=== PATIENT | female | born 1990 | race Caucasian/White ===

== ENCOUNTER 2016-09-15 17:36 | Emergency (ER) | payer SELFPAY ==
[~2016-09-15] VITALS: Ht 165.1 cm; Wt 46.0 kg
[~2016-09-15 17:36] MED LIST: CLIN1CAP6 PO; IBUP800T23 PO; MAGICADU2 SWISH-SPIT; PERI0.126 SWISH-SPIT; PRED-503 PO
[2016-09-15 17:38] VITALS: BP 123/62; PULSE 69; RESP 18; TEMP 98.6; O2SAT 100
--- NOTE | 2016-09-15 17:44 | PD ---
Physical Exam Time Seen by Provider: 17:41 Narrative 25yo F w/ + test 3 weeks ago and having vag bleeding and lower abd cramping x 2-3 days. +nausea w/o vomiting. Denies fever. LMP about 2 months ago. Patient seen in triage. VS reviewed. Awaiting bed placement. Data Data Last Documented VS Vital Signs Date Time Temp Pulse Resp B/P Pulse Ox O2 Delivery O2 Flow Rate FiO2 09/15/16 17:38 98.6 69 18 123/62 100 Room Air MDM Supervised Visit with JAYDEN: Carmen Nash Sep 15, 2016 17:44
--- NOTE | 2016-09-15 18:45 | PD ---
HPI Chief Complaint: Related Problem Time Seen by Provider: 18:34 Travel History International Travel<30 days: No Contact w/Intl Traveler<30days: No Traveled to known affect area: No History of Present Illness HPI 25yo F with no PMH presents to the ED with c/o vaginal spotting, lower abdominal cramping and white vaginal discharge for about 3 days. Pt had positive test at home 2 weeks ago. Does not know her LMP, could be one or 2 months ago. Had nausea but not nauseous right now. Denies any fever, vomiting, chest pain, sob, dysuria, focal weakness or numbness. PFSH Past Medical History Medical History: Denies Significant Hx Diminished Hearing: No Tetanus Vaccination: < 5 Years Influenza Vaccination: No ?: LMP: TWO MONTHS AGO : 1 Past Surgical History Surgical History: No Previous Surgery Social History Alcohol Use: No (quit 2 weeks ago) Tobacco Use: Yes (less than 1/2 ppd) Substance Use: No Allergies-Medications (Allergen,Severity, Reaction): Coded Allergies: No Known Allergies (Unverified , 09/15/16) Reported Meds & Prescriptions Reported Meds & Active Scripts Active Tylenol (Acetaminophen) 325 Mg Tab 650 Mg PO Q6H PRN Macrobid (Nitrofurantoin Monoh/Nitrofur Macro) 100 Mg Cap 100 Mg PO BID 5 Days Review of Systems Except as stated in HPI: all other systems reviewed are Neg Physical Exam Narrative GENERAL: 25yo F not in distress. SKIN: Focused skin assessment warm/dry. HEAD: Atraumatic. Normocephalic. CARDIOVASCULAR: Regular rate and rhythm. No murmur appreciated. RESPIRATORY: No accessory muscle use. Clear to auscultation. Breath sounds equal bilaterally. GASTROINTESTINAL: Abdomen soft, +Suprapubic ttp. No rebound tenderness or guarding. No RLQ ttp. PELVIC: +White vaginal discharge. No blood. Cervical os is closed. No CMT or adnexal tenderness bilaterally. MUSCULOSKELETAL: No obvious deformities. No clubbing. No cyanosis. No edema. NEUROLOGICAL: Awake and alert. No obvious cranial nerve deficits. Motor grossly within normal limits. Normal speech. PSYCHIATRIC: Appropriate mood and affect; insight and judgment normal. Data Data Last Documented VS Vital Signs Date Time Temp Pulse Resp B/P Pulse Ox O2 Delivery O2 Flow Rate FiO2 09/15/16 19:28 71 18 104/63 100 Room Air 09/15/16 17:38 98.6 Orders Complete Blood Count With Diff (09/15/16 18:40) Basic Metabolic Panel (Bmp) (09/15/16 18:40) Beta Hcg (Quant/Titer) (09/15/16 18:40) Gc And Chlamydia Pcr (09/15/16 18:40) Type And Screen (09/15/16 18:40) Wet Prep Profile (09/15/16 18:40) Urinalysis - C+S If Indicated (09/15/16 18:40) Prothrombin Time / Inr (Pt) (09/15/16 18:40) Act Partial Throm Time (Ptt) (09/15/16 18:40) Ed Poc Ultrasound (09/15/16 ) Ed Poc Ultrasound (09/15/16 ) Us Pelvis Preg W Transvaginal (09/15/16 ) Urine Culture (09/15/16 18:45) Nitrofurantoin Monohyd Macrocr (Macrobid (09/15/16 21:45) Labs Laboratory Tests Test 09/15/16 09/15/16 18:45 19:40 White Blood Count 10.2 TH/MM3 Red Blood Count 3.90 MIL/MM3 Hemoglobin 12.6 GM/DL Hematocrit 36.4 % Mean Corpuscular Volume 93.4 FL Mean Corpuscular Hemoglobin 32.3 PG Mean Corpuscular Hemoglobin 34.6 % Concent Red Cell Distribution Width 12.8 % Platelet Count 305 TH/MM3 Mean Platelet Volume 8.5 FL Neutrophils (%) (Auto) 68.7 % Lymphocytes (%) (Auto) 19.0 % Monocytes (%) (Auto) 8.7 % Eosinophils (%) (Auto) 3.3 % Basophils (%) (Auto) 0.3 % Neutrophils # (Auto) 7.0 TH/MM3 Lymphocytes # (Auto) 1.9 TH/MM3 Monocytes # (Auto) 0.9 TH/MM3 Eosinophils # (Auto) 0.3 TH/MM3 Basophils # (Auto) 0.0 TH/MM3 CBC Comment DIFF FINAL Differential Comment Prothrombin Time 10.2 SEC Prothromb Time International 0.9 RATIO Ratio Activated Partial 27.7 SEC Thromboplast Time Urine Color LIGHT-YELLOW Urine Turbidity HAZY Urine pH 6.5 Urine Specific [place] 1.010 Urine Protein NEG mg/dL Urine Glucose (UA) NEG mg/dL Urine Ketones NEG mg/dL Urine Occult Blood NEG Urine Nitrite NEG Urine Bilirubin NEG Urine Urobilinogen LESS THAN 2.0 MG/DL Urine Leukocyte Esterase TRACE Urine RBC 1 /hpf Urine WBC 1 /hpf Urine Squamous Epithelial 13 /hpf Cells Urine Bacteria MOD /hpf Urine Mucus FEW /lpf Microscopic Urinalysis Comment CULTURE INDICATED Sodium Level 136 MEQ/L Potassium Level 3.5 MEQ/L Chloride Level 102 MEQ/L Carbon Dioxide Level 25.2 MEQ/L Anion Gap 9 MEQ/L Blood Urea Nitrogen 8 MG/DL Creatinine 0.61 MG/DL Estimat Glomerular Filtration 120 ML/MIN Rate Random Glucose 79 MG/DL Calcium Level 8.5 MG/DL Human Chorionic Gonadotropin, 10708 MIU/ML Quant Blood Type A POSITIVE Antibody Screen NEGATIVE Clue Cells (Wet Prep) NONE SEEN Vaginal Trichomonas (Wet Prep) NONE SEEN Vaginal Yeast (Wet Prep) NONE SEEN Chlamydia trachomatis DNA NOT DETECTED (PCR) Neisseria gonorrhoeae DNA NOT DETECTED (PCR) MDM Medical Decision Making Medical Screen Exam Complete: Yes Emergency Medical Condition: Yes Differential Diagnosis Threatened vs. ectopic vs. bacterial vaginosis vs. cystitis Narrative Course 25yo F with lower abdominal cramping, vaginal spotting and white vaginal discharge for 3 days. Pt is but does not know LMP. I was only able to identify gestational sac in bedside ultrasound. Unsure of intrauterine . Will obtain transvaginal US. Labs reviewed, no leukocytosis. [facility] [place] [id number]. Blood type is A+. No rhogam needed. UA showed moderate bacteria and trace leukocyte. Although may be contamination, pt is and has suprapubic ttp so will treat with macrobid. Wet prep negative. Pt states she does not want anything for pain currently. US showed single, viable intrauterine at approximately 5 weeks and 5 days gestational age with small subchorionic hemorrhage. No evidence of ectopic. Return precautions given. Procedures Procedure Narrative Emergency Department Pelvic ultrasound was performed with patient consent. The curvilinear probe was used in the transverse and sagittal views within the suprapubic region revealing a gestational sac. No definite intrauterine identified. Will obtain official transvaginal US. Diagnosis Primary Impression: Vaginal bleeding in Qualified Code: O46.91 - Vaginal bleeding in , first trimester Patient Instructions: General Instructions Departure Forms: Tests/Procedures Additional Instructions: Please follow up with your OBGYN in 1-2 days. Return to the ED if symptoms worsen. Med/Other Pt SpecificInfo: Prescription(s) given Scripts Acetaminophen (Tylenol)325 Mg [id number] Mg PO Q6H PRN (PAIN SCALE 1 TO 4) #20 TAB Ref 0 Prov:Teodora Asher DO 09/15/16 Nitrofurantoin Monohydrate Macrocrystals (Macrobid)100 Mg [id number] Mg PO BID 5 Days Ref 0 Prov:Teodora Asehr DO 09/15/16 Disposition: 01 DISCHARGE HOME Condition: Stable Teodora Asher DO Sep 15, 2016 18:45
[2016-09-15 19:23] LABS: BASOPHIL % 0.3 % (0.0-2.0); EOSINOPHIL # 0.3 TH/MM3 (0-0.4); EOSINOPHIL % 3.3 % (0.0-4.0); HEMATOCRIT 36.4 % (35.0-46.0); HEMO FLAGS DIFF FINAL; LYMPHOCYTE # 1.9 TH/MM3 (1.0-4.8); MEAN CELL VOLUME 93.4 FL (80.0-100.0); MEAN CORPUSCULAR HEMOGLOBIN 32.3 PG (27.0-34.0); MEAN CORPUSCULAR HGB CONC 34.6 % (32.0-36.0); MONO % 8.7 % (0.0-8.0); NEUT % 68.7 % (16.0-70.0); PLATELET COUNT 305 TH/MM3 (150-450); RED CELL DISTRIBUTION WIDTH 12.8 % (11.6-17.2); WHITE BLOOD COUNT 10.2 TH/MM3 (4.0-11.0)
[2016-09-15 19:28] VITALS: BP 104/63; PULSE 71; RESP 18; O2SAT 100
[2016-09-15 19:30] LABS: APTT (PATIENT) 27.7 SEC (24.3-30.1); INTERNATIONAL NORMALIZED RATIO 0.9 RATIO; PROTHROMBIN TIME - PATIENT 10.2 SEC (9.8-11.6)
[2016-09-15 19:31] LABS: BACTERIA, URINE MOD /hpf; BLOOD, URINE NEG (NEG); COMMENT (UR) CULTURE INDICATED; CULTURE IF INDICATED CULTURE INDICATED; GLUCOSE,URINE NEG (NEG); KETONE, URINE NEG (NEG); MUCUS URINE FEW /lpf (OCC); NITRITE,URINE NEG (NEG); PH, URINE 6.5 (5.0-8.5); SQUAMOUS EPITHELIAL CELL URINE 13 /hpf (0-5); URINE COLOR LIGHT-YELLOW (YELLW/STRAW)
[2016-09-15 19:48] LABS: BICARBONATE 25.2 MEQ/L (21.0-32.0); POTASSIUM 3.5 MEQ/L (3.5-5.1)
--- NOTE | 2016-09-15 21:35 | RADRPT ---
EXAM DATE/TIME: 09/15/2016 20:39 [place] COMPARISON: No previous studies available for comparison. INDICATIONS : Pelvic cramping and spotting. LAB(S): Beta-hC,970 MEDICAL HISTORY : . Tobacco use. SURGICAL HISTORY : None. ENCOUNTER: Initial ACUITY: 3 days PAIN SCORE: 5/10 LOCATION: Bilateral pelvis MEASUREMENTS: UTERUS: 9.7 x 6.6 x 4.6 cm ENDOMETRIAL STRIPE: 18 mm RIGHT OVARY: 3.8 x 2.4 x 2.7 cm LEFT OVARY: 2.4 x 2.0 x 1.3 cm FREE FLUID: Yes posterior cul de sac CROWN RUMP LENGTH: 0.2 cm = 5 WKS 5 DAYS FHR: 106 BPM FINDINGS: UTERUS: Viable intrauterine at approximately 5 weeks 5 days gestational age noted. heart tone s are demonstrated. Mixed echogenicity structure seen adjacent to the gestational sac suggesting a kelsey bchorionic hemorrhage, measures 13 x 11 x 10 mm. RIGHT OVARY: Complex cyst measuring 18 x 13 x 15 mm. LEFT OVARY: Ovary contains no mass or significant cystic lesion. MISCELLANEOUS: Trace free fluid in the pelvic cul-de-sac. CONCLUSION: 1. Single, viable intrauterine at approximately 5 weeks 5 days gestational age with a small subchorionic hemorrhage. 2. Corpus luteal cyst of the right ovary. No evidence of ectopic. Calvin Meléndez MD on September 15, 2016 at 21:31 Board Certified Radiologist. This report was verified electronically.
[2016-09-15] MEDS ORDERED: TYLE325T PO (21:40)
[2016-09-15] MEDS ORDERED: MACR100C2 PO (21:40)
[2016-09-15] MEDS ORDERED: NITROFURANTOIN MONOHYD MACROCR 100 MG CAP PO ONE (21:45)
[2016-09-15 21:47] LABS: CHLAMYDIA PCR NOT DETECTED (NOT DETECT); NEISSERIA PCR NOT DETECTED (NOT DETECT)
[2016-09-15 22:02] VITALS: BP 105/74
== END 2016-09-15 22:11 | disposition home or self-care (01) ==
LOC: NEPD 17:36
DX: O46.91 Antepartum hemorrhage, unspecified, first trimester (principal); O26.891 Other specified pregnancy related conditions, first trimester; R10.30 Lower abdominal pain, unspecified; R82.99 Other abnormal findings in urine; Z72.0 Tobacco use; Z3A.01 Less than 8 weeks gestation of pregnancy
CPT/HCPCS: 76801; 76817; 80048; 81001; 84702; 85025; 85610; 85730; 86850; 86900; 86901; 87086; 87210; 87491; 87591; 99284

== ENCOUNTER 2017-02-27 15:55 | Emergency (ER) | payer OTHER, MEDICAID ==
[~2017-02-27] VITALS: Ht 152.4 cm; Wt 54.0 kg
[~2017-02-27 15:55] MED LIST changes: -CLIN1CAP6 PO; -IBUP800T23 PO; +MACR100C2 PO; -MAGICADU2 SWISH-SPIT; -PERI0.126 SWISH-SPIT; -PRED-503 PO; +TYLE325T PO
[2017-02-27 16:12] VITALS: BP 116/63; PULSE 87; RESP 16; TEMP 98.5; O2SAT 99
--- NOTE | 2017-02-27 17:08 | PD ---
HPI Chief Complaint: GI Complaint Time Seen by Provider: 17:07 Travel History International Travel<30 days: No Contact w/Intl Traveler<30days: No Traveled to known affect area: No History of Present Illness HPI 26-year-old female came to the emergency room with history of vomiting since yesterday. Patient is close to 30 weeks . However she has not had any care. And says she does not have insurance but she is trying to get somebody since her Medicare has kicked in. She says she can feel the baby moving. She also feels quite dehydrated. Patient is A0. Her vital signs were stable. She otherwise claims to be a healthy person. She says she' s been vomiting a lot throughout the . She has been taking the pills every day. Her is here with her as well. [facility] Past Medical History Narrative Medical List of her past medical, surgical, social and family history is reviewed from the nursing note. Diminished Hearing: No ?: LMP: 08/2016 : 1 Social History Alcohol Use: No (quit 2 weeks ago) Tobacco Use: Yes (less than 1/2 ppd) Substance Use: No Allergies-Medications (Allergen,Severity, Reaction): Coded Allergies: No Known Allergies (Unverified Adverse Reaction, Unknown, 02/27/17) Comments No known drug allergies. Reported Meds & Prescriptions Reported Meds & Active Scripts Active Zofran Odt (Ondansetron Odt) 4 Mg Tab 4 Mg SL Q6HR PRN Narrative Medication List of her home medications reviewed from the nursing note. Review of Systems Except as stated in HPI: all other systems reviewed are Neg Gastrointestinal: Positive: Nausea, Vomiting Physical Exam Narrative GENERAL: Awake, alert, mild distress SKIN: Focused skin assessment warm/dry. HEAD: Atraumatic. Normocephalic. EYES: Pupils equal and round. No scleral icterus. No injection or drainage. ENT: No nasal bleeding or discharge. Mucous membranes pink and moist. Poor dentition NECK: Trachea midline. No JVD. CARDIOVASCULAR: Regular rate and rhythm. No murmur appreciated. RESPIRATORY: No accessory muscle use. Clear to auscultation. Breath sounds equal bilaterally. GASTROINTESTINAL: Abdomen soft, non-tender, nondistended. Hepatic and splenic margins not palpable. Gravid uterus MUSCULOSKELETAL: No obvious deformities. No clubbing. No cyanosis. No edema. NEUROLOGICAL: Awake and alert. No obvious cranial nerve deficits. Motor grossly within normal limits. Normal speech. PSYCHIATRIC: Appropriate mood and affect; insight and judgment normal. Data Data Last Documented VS Orders Orders Complete Blood Count With Diff (02/27/17 17:37) Comprehensive Metabolic Panel (02/27/17 17:37) Urinalysis - C+S If Indicated (02/27/17 17:37) Iv Access Insert/Monitor (02/27/17 17:37) Ecg Monitoring (02/27/17 17:37) Oximetry (02/27/17 17:37) Ondansetron Inj (Zofran Inj) (02/27/17 17:45) Sodium Chlor 0.9% 1000 Ml Inj (Ns 1000 M (02/27/17 17:37) Sodium Chloride 0.9% Flush (Ns Flush) (02/27/17 17:45) Ed Discharge Order (02/27/17 18:27) Labs Laboratory Tests Test 02/27/17 17:45 02/27/17 17:50 Urine Color YELLOW Urine Turbidity CLEAR Urine pH 7.0 Urine Specific [place] 1.020 Urine Protein NEG mg/dL Urine Glucose (UA) NEG mg/dL Urine Ketones 15 mg/dL Urine Occult Blood NEG Urine Nitrite NEG Urine Bilirubin NEG Urine Leukocyte Esterase NEG Urine WBC 0-2 /hpf Urine Squamous Epithelial Cells 0-5 /hpf Urine Bacteria FEW /hpf Urine Mucus MOD /lpf Microscopic Urinalysis Comment CULT NOT INDICATED White Blood Count 14.7 TH/MM3 Red Blood Count 3.48 MIL/MM3 Hemoglobin 10.2 GM/DL Hematocrit 32.2 % Mean Corpuscular Volume 92.6 FL Mean Corpuscular Hemoglobin 29.4 PG Mean Corpuscular Hemoglobin Concent 31.7 % Red Cell Distribution Width 12.2 % Platelet Count 322 TH/MM3 Mean Platelet Volume 7.6 FL Neutrophils (%) (Auto) 89.1 % Lymphocytes (%) (Auto) 5.6 % Monocytes (%) (Auto) 3.7 % Eosinophils (%) (Auto) 0.2 % Basophils (%) (Auto) 1.4 % Neutrophils # (Auto) 13.2 TH/MM3 Lymphocytes # (Auto) 0.8 TH/MM3 Monocytes # (Auto) 0.5 TH/MM3 Eosinophils # (Auto) 0.0 TH/MM3 Basophils # (Auto) 0.2 TH/MM3 CBC Comment DIFF FINAL Differential Comment Blood Urea Nitrogen 6 MG/DL Creatinine 0.49 MG/DL Random Glucose 82 MG/DL Total Protein 7.2 GM/DL Albumin 3.1 GM/DL Calcium Level 8.5 MG/DL Alkaline Phosphatase 67 U/L Aspartate Amino Transf (AST/SGOT) 20 U/L Alanine Aminotransferase (ALT/SGPT) 39 U/L Total Bilirubin 0.4 MG/DL Sodium Level 137 MEQ/L Potassium Level 3.5 MEQ/L Chloride Level 104 MEQ/L Carbon Dioxide Level 24.6 MEQ/L Anion Gap 8 MEQ/L Estimat Glomerular Filtration Rate 153 ML/MIN [facility] Medical Decision Making Medical Screen Exam Complete: Yes Emergency Medical Condition: Yes Medical Record Reviewed: Yes Differential Diagnosis Vomiting in , dehydration, UTI Narrative Course 6:13 PM heart tones were 150 bpm. UA is negative. Patient's white blood cell count is elevated which could be from the . Awaiting for the chemistry. I have ordered 1 L of IV fluid bolus and Zofran. Procedures EKG Prior to Arrival: No Diagnosis Primary Impression: Leukocytosis Qualified Codes: D72.829 - Elevated white blood cell count, unspecified Additional Impressions: Vomiting affecting Dehydration Third trimester Referrals: Primary Care Physician Additional Instructions: You should get an OB for this . Take the medication as per the prescription direction. Return to the ER if the condition worsens or any other new concerns. Med/Other Pt SpecificInfo: Prescription(s) given Scripts Ondansetron Odt (Zofran Odt) 4 Mg Tab 4 MG SL Q6HR Y for Nausea/Vomiting, #10 TAB 0 Refills Prov: Katerine Wu MD 02/27/17 Disposition: DISCHARGE HOME Condition: Stable Katerine Wu MD Feb 27, 2017 17:08
[2017-02-27] MEDS ORDERED: SODIUM CHLOR 0.9% 1000 ML INJ 1,000 ML IV SCH (17:37)
[2017-02-27] MEDS ORDERED: SODIUM CHLORIDE 0.9% FLUSH 10 ML FLUSH IV FLUSH PRN (17:45)
[2017-02-27] MEDS ORDERED: ONDANSETRON HCL 4 MG/2 ML VIAL IVP ONE (17:45)
[2017-02-27 17:54] LABS: BLOOD, URINE NEG (NEG); GLUCOSE,URINE NEG (NEG); KETONE, URINE 15 mg/dL (NEG); NITRITE,URINE NEG (NEG)
[2017-02-27 17:58] VITALS: O2SAT 98
[2017-02-27 17:59] LABS: URINE COLOR YELLOW (YELLW/STRAW)
[2017-02-27 18:00] LABS: BACTERIA, URINE FEW /hpf; COMMENT (UR) CULT NOT INDICATED; CULTURE IF INDICATED CULT NOT INDICATED; MUCUS URINE MOD /lpf (OCC); SQUAMOUS EPITHELIAL CELL URINE 0-5 /hpf (0-5); WBC, URINE 0-2 /hpf (0-5)
[2017-02-27 18:06] LABS: AUTOMATED NEUTROPHIL # 13.2 TH/MM3 (1.8-7.7); BASOPHIL # 0.2 TH/MM3 (0-0.2); BASOPHIL % 1.4 % (0.0-2.0); CHLORIDE 104 MEQ/L (98-107); EOSINOPHIL % 0.2 % (0.0-4.0); HEMATOCRIT 32.2 % (35.0-46.0); LYMPH % 5.6 % (9.0-44.0); LYMPHOCYTE # 0.8 TH/MM3 (1.0-4.8); MEAN CELL VOLUME 92.6 FL (80.0-100.0); MEAN CORPUSCULAR HEMOGLOBIN 29.4 PG (27.0-34.0); MEAN CORPUSCULAR HGB CONC 31.7 % (32.0-36.0); MONO % 3.7 % (0.0-8.0); NEUT % 89.1 % (16.0-70.0); PLATELET COUNT 322 TH/MM3 (150-450); POTASSIUM 3.5 MEQ/L (3.5-5.1); RED BLOOD COUNT 3.48 MIL/MM3 (4.00-5.30); RED CELL DISTRIBUTION WIDTH 12.2 % (11.6-17.2); SODIUM (NA) 137 MEQ/L (136-145); WHITE BLOOD COUNT 14.7 TH/MM3 (4.0-11.0)
[2017-02-27 18:10] LABS: ANION GAP 8 MEQ/L (5-15); BICARBONATE 24.6 MEQ/L (21.0-32.0); BLOOD UREA NITROGEN 6 MG/DL (7-18)
[2017-02-27 18:12] LABS: HEMO FLAGS DIFF FINAL
[2017-02-27 18:13] LABS: ALT (GPT) 39 U/L (10-53); AST (GOT) 20 U/L (15-37); GLOMERULAR FILTRATION RATE 153 ML/MIN (>89)
[2017-02-27 18:15] LABS: TOTAL BILIRUBIN ADULT 0.4 MG/DL (0.2-1.0)
[2017-02-27 18:16] LABS: ALKALINE PHOSPHATASE 67 U/L (45-117)
[2017-02-27] MEDS ORDERED: ZOFR4TAB3 SL (18:27)
[2017-02-27 18:39] VITALS: BP 113/57
== END 2017-02-27 18:48 | disposition home or self-care (01) ==
LOC: PHED 15:55
DX: O26.893 Other specified pregnancy related conditions, third trimester (principal); D72.829 Elevated white blood cell count, unspecified; E86.0 Dehydration; O21.9 Vomiting of pregnancy, unspecified; O09.33 Supervision of pregnancy with insufficient antenatal care, third trimester; O99.333 Smoking (tobacco) complicating pregnancy, third trimester; Z3A.29 29 weeks gestation of pregnancy
CPT/HCPCS: 80053; 81001; 85025; 96361; 96374; 99284; J2405; J7030

== ENCOUNTER 2017-05-19 18:10 | Inpatient (IN) | payer MEDICAID, OTHER ==
[~2017-05-19] VITALS: Ht 152.4 cm; Wt 60.0 kg
[~2017-05-19 18:10] MED LIST changes: -MACR100C2 PO; +METR-1 PO; -TYLE325T PO
[2017-05-19] MEDS ORDERED: PRENTAB7 (18:57)
[2017-05-19] MEDS ORDERED: LACTATED RINGER'S 1000 ML INJ 1,000 ML IV PRN (19:14)
[2017-05-19] MEDS ORDERED: OXYTOCIN 30 UNITS-500ML PREMIX 500 ML IV ONE (19:15)
[2017-05-19] MEDS ORDERED: MINERAL OIL 10 ML VIAL TOPICAL PRN (19:15)
[2017-05-19] MEDS ORDERED: CITRIC ACID-SODIUM CITRATE LIQ 30 ML UDC PO SCH (19:15)
[2017-05-19] MEDS ORDERED: LIDOCAINE HCL 1% 50 ML VIAL INFIL PRN (19:15)
[2017-05-19] MEDS ORDERED: SODIUM CHLORID 0.9% 500 ML INJ 500 ML IV PRN (19:15)
[2017-05-19] MEDS ORDERED: LIDOCAINE HCL 1% 50 ML VIAL I-DERMAL PRN (19:15)
[2017-05-19 19:20] LABS: AUTOMATED NEUTROPHIL # 8.5 TH/MM3 (1.8-7.7); BASOPHIL % 0.4 % (0.0-2.0); EOSINOPHIL # 0.1 TH/MM3 (0-0.4); EOSINOPHIL % 0.9 % (0.0-4.0); HEMATOCRIT 28.5 % (35.0-46.0); HEMOGLOBIN 9.8 GM/DL (11.6-15.3); LYMPH % 14.7 % (9.0-44.0); LYMPHOCYTE # 1.6 TH/MM3 (1.0-4.8); MEAN CORPUSCULAR HEMOGLOBIN 29.2 PG (27.0-34.0); MEAN CORPUSCULAR HGB CONC 34.4 % (32.0-36.0); MEAN PLATELET VOLUME 9.7 FL (7.0-11.0); MONO % 7.4 % (0.0-8.0); MONOCYTE # 0.8 TH/MM3 (0-0.9); NEUT % 76.6 % (16.0-70.0); PLATELET COUNT 230 TH/MM3 (150-450); RED BLOOD COUNT 3.35 MIL/MM3 (4.00-5.30); RED CELL DISTRIBUTION WIDTH 15.8 % (11.6-17.2)
[2017-05-19 19:27] LABS: BILIRUBIN, URINE NEG (NEG); BLOOD, URINE NEG (NEG); GLUCOSE,URINE NEG (NEG); KETONE, URINE NEG (NEG); MUCUS URINE FEW /lpf (OCC); NITRITE,URINE NEG (NEG); PH, URINE 5.5 (5.0-8.5); SQUAMOUS EPITHELIAL CELL URINE 7 /hpf (0-5); URINE COLOR YELLOW (YELLW/STRAW); URINE LEUKOCYTE ESTERASE NEG (NEG)
[2017-05-19] MEDS ORDERED: SODIUM CHLOR 0.9% 1000 ML INJ 1,000 ML IV PRN (19:34)
--- NOTE | 2017-05-19 19:50 | HHI.HP ---
HPI Chief Complaint Postdates induction Date Seen: May 19, 2017 Time Seen: 19:45 Travel History International Travel<30 Days: No Contact w/Intl Traveler<30Days: No Known Affected Area: No History of Present Illness HPI 26-year-old white female now at 41 weeks tomorrow presents for postdates induction, she [facility], she is no other complaints or problems no pain leakage or bleeding, heart rate tracing is reactive and she has an occasional contraction Weeks Gestation: 41 Para: 0 : 1 History Social History Narrative Social History Smokes marijuana Alcohol Use: No Tobacco Use: No Substance Abuse: Yes Allergies-Medications (Allergen,Severity, Reaction): Coded Allergies: No Known Allergies (Unverified Adverse Reaction, Unknown, 04/12/17) Home Meds Reported Medications Pnv No.95/Ferrous Fum/Folic AC ( Vitamins Tablet) 28 Mg Iron-800 Mcg Tablet 05/19/17 Discontinued Scripts Metronidazole (Flagyl) 500 Mg Tab, 500 MG PO BID for Infection, #14 TAB 0 Refills Prov:Shanel Brand 04/12/17 Review of Systems General / Constitutional: No: Fever, Weight Gain, Chills, Other Eyes: No: Diploplia, Blurred Vision, Visual changes, Pain, Photophobia HENT: No: Headaches, Vertigo, Lightheadedness Cardiovascular: No: Irregular Rhythm, Chest Pain or Discomfort, Palpitations, Tachycardia, Syncope, Varicosities, Edema, Cyanosis Respiratory: No: Cough, Short of Breath, Other Gastrointestinal: No: Nausea, Vomiting, Diarrhea Genitourinary: No: Decreased Urinary Output, Oliguria Musculoskeletal: No: Limited ROM, Weakness, Cramping, Edema, Pain Skin: No Rash, No Itching, No Dryness, No Lumps, No Change in Pigmentation, No Change in Nails, No Alopecia, No Lesions Neurologic: No: Weakness, Dizziness, Syncope, Focal Abnormalities, Coordination Problem, Headache, Slurred Speech, Seizures Psychiatric: No: Depression, Suicidal Ideations, Homicidal Ideation Endocrine: No: Heat Intolerance, Cold Intolerance, Polydipsia, Polyuria, Other Physical Exam Narrative GENERAL: Well-nourished, well-developed patient. SKIN: Warm and dry. HEAD: Normocephalic and atraumatic. EYES: No scleral icterus. No injection or drainage. ENT: No nasal drainage noted. Mucous membranes pink. Airway patent. NECK: Supple, trachea midline. No JVD. CARDIOVASCULAR: Regular rate and rhythm without murmurs, gallops, or rubs. RESPIRATORY: Breath sounds equal bilaterally. No accessory muscle use. BREASTS: Bilateral exam showed no masses , no retractions, no nipple discharge. ABDOMEN/GI: Abdomen soft, non-tender, bowel sounds present, no rebound, no guarding Gravid to [38-] weeks size Fundal Height: [38-] GENITOURINARY: External Genitalia: intact and normal in appearance BUS glands: [-] Cervix: [post-] Dilatation: [-0] Effacement: [thick-] Station: [-3] Presentation: [-vtx] Membranes: [intact ] Uterine Contractions: [irreg-] FHT's: Category: [1-] Baseline: [133-] Reactive: [R-] Variability: [-mod] Decels: [none-] EXTREMITIES: No cyanosis or edema. BACK: Nontender without obvious deformity. No CVA tenderness. NEUROLOGICAL: Awake and alert. Motor and sensory grossly within normal limits. Five out of 5 muscle strength in all muscle groups. Normal speech. Caprini VTE Risk Assessment Caprini VTE Risk Assessment: No/Low Risk (score <= 1) Caprini Risk Assessment Model Point Value = 1 Point Value = 2 Point Value = 3 Point Value = 5 Age 41-60 Minor surgery BMI > 25 kg/m2 Swollen legs Varicose veins or History of unexplained or recurrent spontaneous Oral contraceptives or hormone replacement Sepsis (< 1 month) Serious lung disease, including pneumonia (< 1 month) Abnormal pulmonary function Acute myocardial infarction Congestive heart failure (< 1 month) History of inflammatory bowel disease Medical patient at bed rest Age 61-74 Arthroscopic surgery Major open surgery (> 45 min) Laparoscopic surgery (> 45 min) Malignancy Confined to bed (> 72 hours) Immobilizing plaster cast Central venous access Age >= 75 History of VTE Family history of VTE Factor V Leiden Prothrombin [id number] Lupus anticoagulant Anticardiolipin antibodies Elevated serum homocysteine Heparin-induced thrombocytopenia Other congenital or acquired thrombophilia Stroke (< 1 month) Elective arthroplasty Hip, pelvis, or leg fracture Acute spinal cord injury (< 1 month) Prophylaxis Regimen Total Risk Factor Score Risk Level Prophylaxis Regimen 0-1 Low Early ambulation 2 Moderate Order ONE of the following: *Sequential Compression Device (SCD) *Heparin 5000 units SQ BID 3-4 Higher Order ONE of the following medications: *Heparin 5000 units SQ TID *Enoxaparin/Lovenox 40 mg SQ daily (WT < 150 kg, CrCl > 30 mL/min) *Enoxaparin/Lovenox 30 mg SQ daily (WT < 150 kg, CrCl > 10-29 mL/min) *Enoxaparin/Lovenox 30 mg SQ BID (WT < 150 kg, CrCl > 30 mL/min) AND/OR *Sequential Compression Device (SCD) 5 or more Highest Order ONE of the following medications: *Heparin 5000 units SQ TID (Preferred with Epidurals) *Enoxaparin/Lovenox 40 mg SQ daily (WT < 150 kg, CrCl > 30 mL/min) *Enoxaparin/Lovenox 30 mg SQ daily (WT < 150 kg, CrCl > 10-29 mL/min) *Enoxaparin/Lovenox 30 mg SQ BID (WT < 150 kg, CrCl > 30 mL/min) AND *Sequential Compression Device (SCD) Data Data Orders Orders Rubella Immune Status (05/19/17 18:54) Hepatitis Profile (05/19/17 18:54) Rapid Plasma Regin (Rpr) W Ttr (05/19/17 18:54) Type And Screen (05/19/17 18:54) Complete Blood Count With Diff (05/19/17 18:54) Special Serology (05/19/17 18:54) Urinalysis - C+S If Indicated (05/19/17 18:54) Admit To Inpatient (05/19/17 ) Vital Signs (Adult) .Per protocol (05/19/17 19:14) Heart (05/19/17 19:14) Amnioinfusion (05/19/17 19:14) Urinary Catheter Management .ONCE (05/19/17 19:14) Lactated Ringer's 1000 Ml Inj (Lr 1000 M (05/19/17 19:14) Lactated Ringer's 1000 Ml Inj (Lr 1000 M (05/19/17 19:14) Sodium Chlorid 0.9% 500 Ml Inj (Ns 500 M (05/19/17 19:15) Sodium Chlor 0.9% 1000 Ml Inj (Ns 1000 M (05/19/17 19:34) Lidocaine 1% Inj (50 Ml) (Xylocaine 1% I (05/19/17 19:15) Citric Acid-Sodium Citrate Liq (Bicitra (05/19/17 19:15) Fentanyl Inj (Fentanyl Inj) (05/19/17 19:15) Fentanyl Inj (Fentanyl Inj) (05/19/17 19:15) Hold Clot (05/19/17 19:14) Abo/Rh Blood Type (05/19/17 19:14) Drug Screen, Random Urine (05/19/17 19:14) Resp Oxygen Non Rebreathe Mask (05/19/17 ) ^ Epidural / Intrathecal Infus (05/19/17 19:14) Oxytocin 30 Units-500ml Premix (Pitocin (05/19/17 19:15) Lidocaine 1% Inj (50 Ml) (Xylocaine 1% I (05/19/17 19:15) Light Mineral Oil (Muri-Lube Oil) (05/19/17 19:15) Specimen To Be Collected PRN (05/19/17 19:14) Misoprostol (Cytotec) (05/19/17 19:15) Group B Strep: Negative Labs Laboratory Tests Test 05/19/17 18:20 05/19/17 18:38 Urine Color YELLOW Urine Turbidity HAZY Urine pH 5.5 Urine Specific [place] 1.014 Urine Protein NEG Urine Glucose (UA) NEG Urine Ketones NEG Urine Occult Blood NEG Urine Nitrite NEG Urine Bilirubin NEG Urine Urobilinogen LESS THAN 2.0 Urine Leukocyte Esterase NEG Urine WBC 1 Urine Squamous Epithelial Cells 7 Urine Mucus FEW Microscopic Urinalysis Comment CULT NOT INDICATED White Blood Count 11.0 Red Blood Count 3.35 Hemoglobin 9.8 Hematocrit 28.5 Mean Corpuscular Volume 85.0 Mean Corpuscular Hemoglobin 29.2 Mean Corpuscular Hemoglobin Concent 34.4 Red Cell Distribution Width 15.8 Platelet Count 230 Mean Platelet Volume 9.7 Neutrophils (%) (Auto) 76.6 Lymphocytes (%) (Auto) 14.7 Monocytes (%) (Auto) 7.4 Eosinophils (%) (Auto) 0.9 Basophils (%) (Auto) 0.4 Neutrophils # (Auto) 8.5 Lymphocytes # (Auto) 1.6 Monocytes # (Auto) 0.8 Eosinophils # (Auto) 0.1 Basophils # (Auto) 0.0 CBC Comment DIFF FINAL Differential Comment Assessment/Plan Assessment and Plan Patient is 26-year-old white female at 41 weeks tomorrow presents for postdates induction. She is not having contractions regularly, bleeding or leakage of fluid. Baby is vertex presentation. Cervix is closed and posterior. Plan-cervical ripening with Cytotec tonight and tomorrow hopefully if cervix is allowable will begin her induction of labor Davey Ward II, MD May 19, 2017 19:50
[2017-05-19 19:58] VITALS: BP 132/80; PULSE 74; RESP 18; TEMP 97.6
[2017-05-19] MEDS ORDERED: MISOPROSTOL 100 MCG TAB VAGINAL SCH (20:30)
[2017-05-19] MEDS ORDERED: MISOPROSTOL 25 MCG TAB VAGINAL SCH (20:30)
[2017-05-19 21:35] VITALS: BP 123/79; PULSE 73
[2017-05-19 21:45] VITALS: RESP 18; TEMP 97.7
[2017-05-20] VITALS (61 sets, daily range): BP systolic 97–144; BP diastolic 43–91; PULSE 58–184; RESP 16–20; TEMP 97.6–98.7
[2017-05-20] MEDS: LACTATED RINGER'S 1000 ML INJ 1,000 ML IV SCH ×3 (03:10→11:14)
[2017-05-20] MEDS ORDERED: fentaNYL 2MCG-BUPIV 0.125% INJ 100 ML ONE ×2 (07:07→14:55)
[2017-05-20] MEDS ORDERED: ePHEDrine/NS 25 MG/5 ML SYRINGE ONE (07:07)
[2017-05-20] MEDS ORDERED: TERBUTALINE INJ 1 MG/ML AMP ONE (09:31)
[2017-05-20] MEDS ORDERED: TERBUTALINE INJ 1 MG/ML AMP SQ ONE (09:45)
--- NOTE | 2017-05-20 10:37 | PD.LABORPN ---
Subjective Subjective at 41 weeks, IOL for postdates, CFW pt. Marijuana on UDS. Patient feeling CTX on right side of belly but pain improved with Epidural (placed ~ 3am today) . S/P Cytotec ~24hr starting 05/19. Some nausea treated with Zofran this morning. Notably is Rubella non-immune Spontaneous CTX every 1-2 min did require terbutaline this morning, CTX now q3- 4 min IUPC placed by Dr. Ward this AM Cervix 5cm at this time per labor nurse Objective Vital Signs Vital Signs Date Time Temp Pulse Resp B/P (MAP) Pulse Ox O2 Delivery O2 Flow Rate FiO2 05/20/17 09:30 62 134/79 (97) 05/20/17 09:15 60 130/70 (90) 05/20/17 09:01 74 117/44 (68) 05/20/17 08:45 64 124/60 (81) 05/20/17 08:30 68 123/68 (86) 05/20/17 08:24 73 123/77 (92) 05/20/17 08:15 58 110/46 (67) 05/20/17 08:14 64 108/54 (72) 05/20/17 08:00 65 121/68 (85) 05/20/17 07:55 79 122/67 (85) 05/20/17 07:50 73 05/20/17 07:50 78 123/65 (84) 05/20/17 07:45 78 116/68 (84) 05/20/17 07:45 83 05/20/17 07:40 71 05/20/17 07:40 67 107/61 (76) 05/20/17 07:35 58 05/20/17 07:35 66 118/63 (81) 05/20/17 07:31 72 122/68 (86) 05/20/17 07:30 112 05/20/17 07:26 99 137/77 (97) 05/20/17 07:25 86 05/20/17 07:20 114 144/81 (102) 05/20/17 07:20 102 05/20/17 07:16 63 133/75 (94) 05/20/17 07:15 74 05/20/17 07:13 81 143/84 (103) 05/20/17 06:35 18 05/20/17 06:35 97.6 05/20/17 06:34 67 126/69 (88) Objective Pelvic Exam: Cervix: 5/80/-1/soft/vertex Membranes: rupture Uterine Contractions: AROM clear @ 0802 FHT's: Category: 1 Baseline: 120s Reactive: y Variability: marked Decels: variable intermittent Weeks Gestation: 41 Assessment/Plan Assessment and Plan Expectant management at this time Patient states baby is girl, to be given up for adoption Gela De Leon MD May 20, 2017 10:37
--- NOTE | 2017-05-20 12:28 | PD.LABORPN ---
Subjective Subjective Feels contractions Objective Vital Signs Vital Signs Date Time Temp Pulse Resp B/P (MAP) Pulse Ox O2 Delivery O2 Flow Rate FiO2 05/20/17 12:00 76 113/55 (74) 05/20/17 11:30 67 106/47 (66) 05/20/17 11:15 71 107/48 (67) 05/20/17 11:01 75 97/45 (62) 05/20/17 10:46 110 122/53 (76) 05/20/17 10:45 97.7 05/20/17 10:31 184 127/44 (71) 05/20/17 10:15 84 125/59 (81) 05/20/17 10:01 70 108/43 (64) 05/20/17 09:45 62 127/55 (79) 05/20/17 09:30 62 134/79 (97) 05/20/17 09:15 60 130/70 (90) 05/20/17 09:01 74 117/44 (68) 05/20/17 08:45 64 124/60 (81) 05/20/17 08:45 98.6 05/20/17 08:30 68 123/68 (86) 05/20/17 08:24 73 123/77 (92) 05/20/17 08:15 58 110/46 (67) 05/20/17 08:14 64 108/54 (72) 05/20/17 08:00 65 121/68 (85) 05/20/17 07:55 79 122/67 (85) 05/20/17 07:50 73 05/20/17 07:50 78 123/65 (84) 05/20/17 07:45 78 116/68 (84) 05/20/17 07:45 83 05/20/17 07:40 71 05/20/17 07:40 67 107/61 (76) 05/20/17 07:35 58 05/20/17 07:35 66 118/63 (81) 05/20/17 07:31 72 122/68 (86) 05/20/17 07:30 112 05/20/17 07:26 99 137/77 (97) 05/20/17 07:25 86 05/20/17 07:20 114 144/81 (102) 2/17/18 07:20 102 05/20/17 07:16 63 133/75 (94) 05/20/17 07:15 74 05/20/17 07:13 81 143/84 (103) 05/20/17 06:35 18 05/20/17 06:35 97.6 05/20/17 06:34 67 126/69 (88) Objective Pelvic Exam: Cervix: [soft] Dilatation: [5cm] Effacement: [80%] thicker anterior lip Station: [-1] Presentation: [-] Membranes: [ruptured] Uterine Contractions: [3minutes] FHT's: Category: [2] Baseline: [120s] Reactive: [-] Variability: [moderate] Decels: [variables, self resolving] Weeks Gestation: 41 Assessment/Plan Assessment and Plan 26 yo G1 post-term IOL. Cervix unchanged at 5cm, occiput posterior. Thick anterior lip. Cat II tracing with great variability but occasional variable decells. Will start Pitocin per protocol. Joshua Alberto MD May 20, 2017 12:28
[2017-05-20] MEDS ORDERED: OXYTOCIN 30 UNITS-500ML PREMIX 500 ML IV PRN ×2 (12:30→13:15)
--- NOTE | 2017-05-20 16:22 | PD.LABORPN ---
Subjective Subjective feels contractions even with epidural Objective Vital Signs Vital Signs Date Time Temp Pulse Resp B/P (MAP) Pulse Ox O2 Delivery O2 Flow Rate FiO2 05/20/17 16:00 87 130/79 (96) 05/20/17 15:31 69 125/60 (81) 05/20/17 15:00 116 127/68 (87) 05/20/17 14:45 98.2 05/20/17 14:30 115 128/74 (92) 05/20/17 14:00 59 118/59 (78) 05/20/17 14:00 65 05/20/17 13:30 99 130/76 (94) 05/20/17 13:00 105 118/72 (87) 05/20/17 12:39 98.0 05/20/17 12:30 113/91 (98) 05/20/17 12:00 76 113/55 (74) 05/20/17 11:30 67 106/47 (66) 05/20/17 11:15 71 107/48 (67) 05/20/17 11:01 75 97/45 (62) 05/20/17 10:46 110 122/53 (76) 05/20/17 10:45 97.7 05/20/17 10:31 184 127/44 (71) 05/20/17 10:15 84 125/59 (81) 05/20/17 10:01 70 108/43 (64) 05/20/17 09:45 62 127/55 (79) 05/20/17 09:30 62 134/79 (97) 05/20/17 09:15 60 130/70 (90) 05/20/17 09:01 74 117/44 (68) 05/20/17 08:45 64 124/60 (81) 05/20/17 08:45 98.6 05/20/17 08:30 68 123/68 (86) 05/20/17 08:24 73 123/77 (92) Objective Pelvic Exam: Cervix: [soft] Dilatation: [7-8cm] Effacement: [80%, anterior lip remains swollen] Station: [0] Presentation: [-] Membranes: [ruptured] Uterine Contractions: [3-4 minutes] FHT's: Category: [1] Baseline: [-] Reactive: [-] Variability: [moderate] Decels: [none] Weeks Gestation: 41 Assessment/Plan Assessment and Plan Term labor status reassuring. Continue Pitocin per protocol. Occipito-posterior presentation. IV Joshua Miller MD May 20, 2017 16:22
[2017-05-20] MEDS ORDERED: diphenhydrAMINE HCL 50 MG/ML VIAL IV PUSH ONE (16:30)
--- NOTE | 2017-05-20 17:04 | PD.LABORPN ---
Objective Vital Signs Vital Signs Date Time Temp Pulse Resp B/P (MAP) Pulse Ox O2 Delivery O2 Flow Rate FiO2 05/20/17 16:00 87 130/79 (96) 05/20/17 15:31 69 125/60 (81) 05/20/17 15:00 116 127/68 (87) 05/20/17 14:45 98.2 05/20/17 14:30 115 128/74 (92) 05/20/17 14:00 59 118/59 (78) 05/20/17 14:00 65 05/20/17 13:30 99 130/76 (94) 05/20/17 13:00 105 118/72 (87) 05/20/17 12:39 98.0 05/20/17 12:30 113/91 (98) 05/20/17 12:00 76 113/55 (74) 05/20/17 11:30 67 106/47 (66) 05/20/17 11:15 71 107/48 (67) 05/20/17 11:01 75 97/45 (62) 05/20/17 10:46 110 122/53 (76) 05/20/17 10:45 97.7 05/20/17 10:31 184 127/44 (71) 05/20/17 10:15 84 125/59 (81) 05/20/17 10:01 70 108/43 (64) 05/20/17 09:45 62 127/55 (79) 05/20/17 09:30 62 134/79 (97) 05/20/17 09:15 60 130/70 (90) Objective Pelvic Exam: Cervix: 8 FHT's: Category: 2 Baseline: 130s Reactive: y Variability: mod Decels: variables, lates Weeks Gestation: 41 Assessment/Plan Assessment and Plan Term labor status noted, Cat 2, recurring lates but good variability Occipito-posterior presentation IV Benadryl given for swelling Possible operative delivery vs CS depending on progression Gela De Leon MD May 20, 2017 17:04
[2017-05-20] MEDS ORDERED: LIDOCAINE HCL 1% 20 ML VIAL ONE (17:40)
[2017-05-20] MEDS ORDERED: OXYTOCIN 30 UNITS-500ML PREMIX 500 ML IV SCH (18:15)
[2017-05-20] MEDS ORDERED: oxyCODONE/ACETAMINOPHEN 5 MG/325 MG TAB PO PRN (18:15)
[2017-05-20] MEDS ORDERED: ALUMINUM/MAGNESIUM/SIMETH 30 ML CUP PO PRN (18:15)
[2017-05-20] MEDS ORDERED: BENZOCAINE 20% TOPICAL SPRAY 60 ML CAN TOPICAL PRN (18:15)
[2017-05-20] MEDS ORDERED: ONDANSETRON ODT 4 MG TAB PO PRN (18:15)
[2017-05-20] MEDS ORDERED: MEASLES, MUMPS, RUBELLA VACCINE 0.5 ML VIAL SQ ONE (18:15)
[2017-05-20] MEDS ORDERED: ACETAMINOPHEN 325 MG TAB PO PRN (18:15)
[2017-05-20] MEDS ORDERED: ZOLPIDEM TARTRATE 5 MG TAB PO PRN (18:15)
[2017-05-20] MEDS ORDERED: SODIUM CHLORIDE 0.9% FLUSH 10 ML FLUSH IV FLUSH PRN (18:15)
[2017-05-20] MEDS ORDERED: DIPHTH/TETANUS/ACEL PERTUSSIS (BOOSTER) 0.5 ML VIAL/PFS IM ONE (18:15)
[2017-05-20] MEDS ORDERED: DOCUSATE SODIUM 50 MG/SENNA 8.6 MG TAB PO PRN (18:15)
--- NOTE | 2017-05-20 18:33 | PD.OB.DELI ---
Weeks gestation: 41 Gest age assessed date: May 19, 2017 Gest age assessed time: 08:00 Pt started active labor?: Yes Active labor start date: May 20, 2017 Active labor start time: 08:00 Medical induction of labor?: Yes Medical induction start date: May 19, 2017 Medical induction start time: 12:30 Artificial rupture of membrane: Yes Artificial ROM date: May 20, 2017 Artifical ROM time: 08:02 Anesthesia: Epidural Episiotomy: Left mediolateral Vaginal Delivery: Vacuum Presentation: Occiput posterior Nuchal Cord: None Delayed cord clamping (45 sec): Yes : Female Delivery date: May 20, 2017 Delivery time: 17:57 One Minute : 8 Five Minute : 9 Weight: 3625g Placenta: Spontaneous delivery, Intact, 3 vessel cord Laceration: Episiotomy Repair: Vicryl interrupted, Vicryl running Estimated blood loss: 200cc Additional Information Pt with Cat II tracing, anterior lip easily displaced. Some descent with maternal effort. Decision made to proceed with vacuum rotation. Occiptoposterior position. +1 station\Full dilatation Bladder empty. Kiwi applied to occiput. No maternal tissue entrapped. Episiotomy LML Good descent with each contraction, no pop-offs Delivery over 4 contractions. Easy delivery of shoulders Standard repair of LML episiotomy with 0 and 2.0 Vicryl. Joshua Alberto MD May 20, 2017 18:33
[2017-05-20] MEDS ORDERED: SODIUM CHLORIDE 0.9% FLUSH 10 ML FLUSH IV FLUSH SCH (21:00)
[2017-05-20] MEDS: IBUPROFEN 800 MG TAB PO PRN (21:07)
[2017-05-20] MEDS: WITCH HAZEL 50%/GLYCERIN 12.5% 40 PAD JAR TOPICAL PRN (21:11)
[2017-05-21] MEDS: oxyCODONE/ACETAMINOPHEN 5 MG/325 MG TAB PO PRN ×3 (02:20→17:44)
[2017-05-21 08:00] VITALS: BP 123/73; PULSE 74; RESP 18; TEMP 98.1
[2017-05-21] MEDS: IBUPROFEN 800 MG TAB PO PRN ×2 (08:17→17:45)
--- NOTE | 2017-05-21 08:35 | HHI.OB ---
Subjective Post Day: 1 Remarks day # 1. Operative vaginal delivery with vacuum, 3rd deg lacerative repaired. AFVSS overnight. Decreased lochia. Denies dysuria. No breast tenderness. Baby up for adoption. Appetite good. No nausea or vomiting. Patient has not yet had a bowel movement. Ambulating well. Denies calf pain or shortness of breath. Otherwise, she is doing well this morning and has no other concerns. Objective Vitals/I&O Vital Signs Date Time Temp Pulse Resp B/P (MAP) Pulse Ox O2 Delivery O2 Flow Rate FiO2 05/20/17 21:00 76 16 134/76 (95) 05/20/17 21:00 98.7 05/20/17 20:14 18 05/20/17 19:45 18 05/20/17 19:15 18 05/20/17 19:00 105 129/80 (96) 05/20/17 18:49 121 128/67 (87) 05/20/17 18:45 98.0 17 05/20/17 18:30 160 133/75 (94) 05/20/17 18:15 113 123/70 (87) 05/20/17 18:06 127 127/72 (90) 05/20/17 18:00 132 130/81 (97) 05/20/17 17:30 126 138/68 (91) 05/20/17 17:10 85 05/20/17 17:00 90 05/20/17 17:00 123/77 (92) 05/20/17 16:32 91 112/54 (73) 05/20/17 16:00 87 130/79 (96) 05/20/17 15:31 69 125/60 (81) 18 15:00 116 127/68 (87) 05/20/17 14:45 98.2 05/20/17 14:30 115 128/74 (92) 05/20/17 14:00 59 118/59 (78) 05/20/17 14:00 65 05/20/17 13:30 99 130/76 (94) 05/20/17 13:00 105 118/72 (87) 05/20/17 12:39 98.0 05/20/17 12:30 113/91 (98) 05/20/17 12:00 76 113/55 (74) 05/20/17 11:30 67 106/47 (66) 05/20/17 11:15 71 107/48 (67) 05/20/17 11:01 75 97/45 (62) 05/20/17 10:46 110 122/53 (76) 05/20/17 10:45 97.7 05/20/17 10:31 184 127/44 (71) 05/20/17 10:15 84 125/59 (81) 05/20/17 10:01 70 108/43 (64) 05/20/17 09:45 62 127/55 (79) 05/20/17 09:30 62 134/79 (97) 05/20/17 09:15 60 130/70 (90) 05/20/17 09:01 74 117/44 (68) 05/20/17 08:45 64 124/60 (81) 05/20/17 08:45 98.6 Objective Remarks GENERAL: Well-nourished, well-developed patient. CARDIOVASCULAR: Regular rate and rhythm without murmurs, gallops, or rubs. RESPIRATORY: Breath sounds equal bilaterally. No accessory muscle use. ABDOMEN/GI: Abdomen soft, non-tender. Fundus: Firm, non-tender at umbilicus. GENITOURINARY: Light to moderate bleeding. EXTREMITIES: No cyanosis or edema, non-tender, without signs of DVT. Medications and IVs Current Medications Medications (Trade) Dose Ordered Sig/Tata Route Start Time Stop Time Status Last Admin (Xylocaine 1% Inj (50 ml)) 0.1 ml UNSCH X1 PRN I-DERMAL 05/19/17 19:15 05/22/17 19:14 (Xylocaine 1% Inj (50 ml)) 10 ml UNSCH X1 PRN INFIL 05/19/17 19:15 18 19:14 (Cytotec) 25 mcg Q4H VAGINAL 05/19/17 20:30 Oxytocin 500 ml @ 2 mls/hr TITRATE PRN IV 05/20/17 13:15 (NS Flush) 2 ml BID IV FLUSH 05/20/17 21:00 (NS Flush) 2 ml UNSCH PRN IV FLUSH 05/20/17 18:15 (Tylenol) 650 mg Q4H PRN PO 05/20/17 18:15 (Motrin) 800 mg Q8H PRN PO 05/20/17 18:15 05/21/17 08:17 (Percocet 5-325 Mg) 1 tab Q4H PRN PO 05/20/17 18:15 05/21/17 08:18 (Percocet 5-325 Mg) 2 tab Q4H PRN PO 05/20/17 18:15 (Americaine 20% Top Spr) 1 spray Q4H PRN TOPICAL 05/20/17 18:15 05/20/17 21:11 (Tucks Pads) 1 applic QID PRN TOPICAL 05/20/17 18:15 05/20/17 21:11 (Adriana-Colace) 2 tab Q12H PRN PO 05/20/17 18:15 (Ambien) 5 mg HS PRN PO 05/20/17 18:15 (Mag-Al Plus Susp Liq) 15 ml Q8H PRN PO 05/20/17 18:15 (Zofran Odt) 4 mg Q6H PRN PO 05/20/17 18:15 05/21/17 02:20 Assessment/Plan Assessment and Plan 26 y/o female who is PPD# 1 s/p Operative vaginal delivery. Baby up for adoption. -Continue routine care. -Toradol/Motrin PRN pain. -Encouraged OOB. Advised pelvic rest for 6 wks. -Re: ctrl, she would like to avoid, considering vasectomy for her partner. -Anticipate discharge tomorrow. ARELY De Leon,Gela Aguayo MD May 21, 2017 08:35
[2017-05-21 20:30] VITALS: BP 133/84; PULSE 70; RESP 18; TEMP 98.2
[2017-05-21] MEDS: WITCH HAZEL 50%/GLYCERIN 12.5% 40 PAD JAR TOPICAL PRN (22:22)
[2017-05-22] MEDS ORDERED: IBUP1TAB7 PO (06:59)
[2017-05-22] MEDS ORDERED: PERI PO (06:59)
--- NOTE | 2017-05-22 07:00 | HHI.DCPOC ---
Discharge Care Plan Diagnosis: (1) (spontaneous vaginal delivery) Report Symptoms to Your Doctor -Temperature above 100.5 degrees -Redness, of incision or excessive or foul smelling drainage -Unusual pain or calf pain -Increased vaginal bleeding -Painful or difficulty urinating -Feelings of extreme sadness or anxiety after 2 weeks Goals to Promote Your Health * To prevent worsening of your condition and complications * To maintain your health at the optimal level Directions to Meet Your Goals Take your medications as prescribed Follow your dietary instruction Follow activity as directed Ensure plenty of rest for recovery Drink fluids for hydration Keep your appointments as scheduled Take your immunizations and boosters as scheduled If your symptoms worsen call your PCP, if no PCP go to Urgent Care Center or Emergency Room Smoking is Dangerous to Your Health. Avoid second hand smoke Call the 24-hour crisis hotline for domestic abuse at Sedrick Bahena MD R2 May 22, 2017 07:00
[2017-05-22] MEDS: IBUPROFEN 800 MG TAB PO PRN (07:48)
[2017-05-22 08:00] VITALS: BP 125/85; PULSE 86; RESP 14; TEMP 98.4
--- NOTE | 2017-05-22 08:15 | HHI.OB ---
Subjective Post Day: 2 Remarks day # 1. Vaginal delivery with vacuum, 3rd deg lacerative repaired. AFVSS overnight. Decreased lochia. Denies dysuria. No breast tenderness. Baby up for adoption. Appetite good. No nausea or vomiting. Ambulating well. Denies calf pain or shortness of breath. States she is feeling well and eager to head home. Otherwise, she is doing well this morning and has no other concerns. Objective Vitals/I&O Vital Signs Date Time Temp Pulse Resp B/P (MAP) Pulse Ox O2 Delivery O2 Flow Rate FiO2 05/21/17 20:30 98.2 70 18 133/84 (100) Objective Remarks GENERAL: Well-nourished, well-developed patient. CARDIOVASCULAR: Regular rate and rhythm without murmurs, gallops, or rubs. RESPIRATORY: Breath sounds equal bilaterally. No accessory muscle use. ABDOMEN/GI: Abdomen soft, non-tender. Fundus: Firm, non-tender at umbilicus. GENITOURINARY: Light to moderate bleeding. EXTREMITIES: No cyanosis or edema, non-tender, without signs of DVT. Medications and IVs Current Medications Medications (Trade) Dose Ordered Sig/Tata Route Start Time Stop Time Status Last Admin (Xylocaine 1% Inj (50 ml)) 0.1 ml UNSCH X1 PRN I-DERMAL 05/19/17 19:15 05/22/17 19:14 (Cytotec) 25 mcg Q4H VAGINAL 05/19/17 20:30 Oxytocin 500 ml @ 2 mls/hr TITRATE PRN IV 05/20/17 13:15 (NS Flush) 2 ml BID IV FLUSH 05/20/17 21:00 (NS Flush) 2 ml UNSCH PRN IV FLUSH 05/20/17 18:15 (Tylenol) 650 mg Q4H PRN PO 05/20/17 18:15 (Motrin) 800 mg Q8H PRN PO 05/20/17 18:15 05/22/17 07:48 (Percocet 5-325 Mg) 1 tab Q4H PRN PO 05/20/17 18:15 05/21/17 17:44 (Percocet 5-325 Mg) 2 tab Q4H PRN PO 05/20/17 18:15 (Americaine 20% Top Spr) 1 spray Q4H PRN TOPICAL 05/20/17 18:15 05/20/17 21:11 (Tucks Pads) 1 applic QID PRN TOPICAL 05/20/17 18:15 05/21/17 22:22 (Adriana-Colace) 2 tab Q12H PRN PO 05/20/17 18:15 (Ambien) 5 mg HS PRN PO 05/20/17 18:15 (Mag-Al Plus Susp Liq) 15 ml Q8H PRN PO 05/20/17 18:15 (Zofran Odt) 4 mg Q6H PRN PO 05/20/17 18:15 05/21/17 02:20 Assessment/Plan Assessment and Plan 26 y/o female who is PPD# 1 s/p Operative vaginal delivery. Baby up for adoption. -Continue routine care. -Toradol/Motrin PRN pain. -Encouraged OOB. Advised pelvic rest for 6 wks. -Re: ctrl, she would like to avoid, considering vasectomy for her partner. -Anticipate discharge tomorrow. ARELY Cifuentes,Stephen Quinn MD R1 May 22, 2017 08:15
[2017-05-22 13:25] LABS: HEPATITIS A AB IGM NEGATIVE (NEGATIVE); HEPATITIS B CORE AB IGM NEGATIVE (NEGATIVE); HEPATITIS B SURFACE ANTIGEN NEGATIVE (NEGATIVE); HEPATITIS C AB IgG NEGATIVE (NEGATIVE)
== END 2017-05-22 12:32 | disposition home or self-care (01) | DRG 775 ==
LOC: H2EA 18:10 → H1EA 05-20 20:37
PROVIDERS: ADMIT Obstetrics & Gynecology Maternal & Fetal Medicine; ATTEND Obstetrics & Gynecology Maternal & Fetal Medicine
PROC: 3E0P7VZ Introduction of Hormone into Female Reproductive, Via Natural or Artificial Opening (ICD-10-PCS; 2017-05-19)
PROC: 10D07Z6 Extraction of Products of Conception, Vacuum, Via Natural or Artificial Opening (ICD-10-PCS; principal; 2017-05-20)
PROC: 0DQR0ZZ Repair Anal Sphincter, Open Approach (ICD-10-PCS; 2017-05-20)
PROC: 10H07YZ Insertion of Other Device into Products of Conception, Via Natural or Artificial Opening (ICD-10-PCS; 2017-05-20)
PROC: 3E033VJ Introduction of Other Hormone into Peripheral Vein, Percutaneous Approach (ICD-10-PCS; 2017-05-20)
PROC: 10907ZC Drainage of Amniotic Fluid, Therapeutic from Products of Conception, Via Natural or Artificial Opening (ICD-10-PCS; 2017-05-20)
PROC: 0W8NXZZ Division of Female Perineum, External Approach (ICD-10-PCS; 2017-05-20)
DX: O48.0 Post-term pregnancy (principal); O99.324 Drug use complicating childbirth; O70.20 Third degree perineal laceration during delivery, unspecified; F12.10 Cannabis abuse, uncomplicated; Z37.0 Single live birth; Z3A.41 41 weeks gestation of pregnancy
CPT/HCPCS: 59025; 80074; 80307; 81001; 82805; 85025; 86592; 86703; 86762; 86850; 86900; 86901; J1200; J3010; J3105; J7120